=== PATIENT | female | born 1940 | race Caucasian/White ===

== ENCOUNTER 2019-01-11 02:23 | Emergency (ER) | payer MEDICARE ==
[~2019-01-11] VITALS: Ht 165.1 cm; Wt 61.2 kg
--- NOTE | ~2019-01-11 | EKG ---
[place], [place] ELECTROCARDIOGRAM REPORT NAME: BETSY SUTTON UNIT #: [id number] ROOM: DOCTOR: EPIPHANY DRAFT REPORT BIRTHDATE: [birth year] [facility] Test Date: 2019-01-11 Test Time: 02:43:10 Pat Name: BETSY SUTTON Department: Room: Gender: F Birth Attendant: : 1940 Requested By: JUAN PABLO CORTEZ Order Number: [id number] Reading MD: Leonides Montes De Oca MD Measurements Intervals [place] Rate: 58 P: [place]: QRS: -69 QRSD: 143 T: 41 QT: 460 QTc: 452 Interpretive Statements Junctional rhythm IVCD, consider atypical RBBB No previous ECG available for comparison Electronically Signed On 01-11-2019 8:54:22 PDT by Leonides Montes De Oca MD CM:EKGRPT:ELECTROCARDIOGRAM REPORT [id number] JUAN PABLO CORTEZ MD EPIPHANY DRAFT REPORT JUAN PABLO CORTEZ MD
[2019-01-11] MEDS ORDERED: CITALOPRAM20 MG PO (02:54)
[2019-01-11] MEDS ORDERED: LISINOPRIL5 MG PO (02:55)
[2019-01-11] MEDS ORDERED: ALPRAZOLAM0.5 M3 PO (02:55)
[2019-01-11] MEDS ORDERED: B121000 MCG/1 IM (02:55)
[2019-01-11] MEDS ORDERED: ATORVASTATIN CA40 M1 PO (02:55)
[2019-01-11] MEDS ORDERED: LEVOTHYROXINE100 MC1 PO (02:55)
[2019-01-11] MEDS ORDERED: ZANTAC 7575 M1 PO (02:56)
[2019-01-11] MEDS ORDERED: OMEPRAZOLE40 MG PO (02:56)
[2019-01-11] MEDS ORDERED: ANASTROZOLE1 M1 PO (02:56)
[2019-01-11] MEDS ORDERED: PROCHLORPERAZIN10 MG PO (02:57)
[2019-01-11 03:07] LABS: HEMATOCRIT 32.6 % (37.0-47.0); HEMOGLOBIN 10.9 g/dl (12.0-16.0); MEAN CELL VOLUME 94.5 fl (81.0-99.0); MEAN CORPUSCULAR HGB 31.6 pg (27.0-31.0); MEAN CORPUSCULAR HGB CONC 33.4 g/dl (33.0-37.0); MEAN PLATELET VOLUME 10.1 fl (9.6-12.3); PLATELET COUNT AUTOMATED 61 10*3/uL (130-400); RED BLOOD COUNT 3.45 10*6/uL (4.10-5.10); RED CELL DISTRI WIDTH 12.3 % (0-14.5)
[2019-01-11 03:09] LABS: ALBUMIN 3.3 gm/dl (3.1-4.5); ALKALINE PHOSPHATASE 122 U/L (45-117); BUN 17 mg/dl (7-24); CHLORIDE 104 mmol/L (98-107); LIPASE 47 U/L (73-393); POTASSIUM 3.5 mmol/L (3.5-5.1); SGOT/AST 7 IU/L (3-35); SGPT/ALT 17 U/L (12-78); SODIUM 139 mmol/L (136-145); TOTAL PROTEIN 6.7 gm/dL (6.4-8.2)
[2019-01-11 03:13] LABS: TROPONIN I < 0.015 ng/ml (<0.045)
[2019-01-11 03:30] LABS: BASOPHILS 1 % (0-1); PLATELET SUFFICIENCY LOW (NORMAL); TOTAL CELLS COUNTED 100 #CELLS
== END 2019-01-11 07:45 | disposition short-term general hospital (02) ==
LOC: ED 02:23
PROVIDERS: Emergency Medicine Emergency Medical Services
DX: D70.1 Agranulocytosis secondary to cancer chemotherapy (principal); T45.1X5A Adverse effect of antineoplastic and immunosuppressive drugs, initial encounter; C80.1 Malignant (primary) neoplasm, unspecified; C78.00 Secondary malignant neoplasm of unspecified lung; K56.609 Unspecified intestinal obstruction, unspecified as to partial versus complete obstruction; R19.7 Diarrhea, unspecified; Z79.899 Other long term (current) drug therapy; Z88.8 Allergy status to other drugs, medicaments and biological substances; Y92.89 Other specified places as the place of occurrence of the external cause